=== PATIENT | female | born 1965 | race Caucasian/White ===

== ENCOUNTER 2017-03-06 02:57 | Emergency (ER) | payer OTHER ==
[~2017-03-06] VITALS: Ht 170.2 cm; Wt 82.4 kg
[2017-03-06 03:31] LABS: HEMATOCRIT 38.3 % (36.0-46.0); MCH 27.5 PG (29.0-34.0); MCHC 32.9 G/DL (30.0-36.0); MCV 83.6 FL (83-99); MEAN PLAT.VOLUME 9.4 uM^3 (9.5-12.4); PLATELET COUNT 361 K/uL (156-360); RBC DIS.WIDTH-CV 12.7 % (11.8-14.6); RBC DIS.WIDTH-SD 38.4 % (39-53); RED BLOOD COUNT 4.58 M/uL (3.80-5.20); WHITE BLOOD COUNT 13.9 K/uL (4.1-10.2)
[2017-03-06 03:42] LABS: CHLORIDE 103 mEq/L (99-109); POTASSIUM 4.4 mEq/L (3.7-5.4); SODIUM 136 mEq/L (136-147)
[2017-03-06 03:44] LABS: GLUCOSE 139 mg/dL (70-99)
[2017-03-06 03:45] LABS: ANION GAP 11 MEQ/L (2-14)
[2017-03-06 03:46] LABS: TOTAL BILIRUBIN 1.4 mg/dL (0.0-1.0)
[2017-03-06 03:48] LABS: ALKALINE PHOSPHATASE 91 IU/L (3-129)
[2017-03-06 03:49] LABS: UREA NITROGEN (BUN) 11 mg/dL (9-23)
[2017-03-06 03:57] LABS: QUANTITATIVE HCG < 4.0 MIU/ML
[2017-03-06 03:59] LABS: GFR ESTIMATE (CALCULATED) > 59 mL/min/
[2017-03-06 04:01] LABS: EOSINOPHIL (%) 0.4 % (0-5); EOSINOPHIL COUNT 0.1 K/uL (0-0.3); IMMATURE GRANULOCYTE (%) 0.6 % (0.0-0.7); IMMATURE GRANULOCYTE COUNT 0.1 K/uL; INSTRUMENT ABS NEUTROPHIL CT 11.3 K/uL; MONOCYTE (%) 8.8 % (3-12); MONOCYTE COUNT 1.2 K/uL (0-0.8); NEUTROPHIL (%) 82.4 % (45-76); NEUTROPHIL COUNT 11.3 K/uL (1.8-6.4)
[2017-03-06 04:12] LABS: LIPASE 12 U/L (1.0-51.0)
[2017-03-06 04:24] LABS: ADD MIUA? YES; BILIRUBIN NEGATIVE; BLOOD MODERATE; COLOR YELLOW ((YELLOW)); GLUCOSE (STRIP) NEGATIVE; KETONES 20; LEUKOCYTES SMALL; NITRITE NEGATIVE; PROTEIN (STRIP) NEGATIVE; SPECIFIC GRAVITY 1.012 (1.000-1.030); UROBILINOGEN 0.2 MG/DL (0.2-1.0)
[2017-03-06 04:27] LABS: BACTERIA RARE /HPF; EPITHELIAL CELLS RARE /HPF; MUCUS TRACE /LPF; RED BLOOD CELLS 0-5 /HPF (0-5); UCUL ADDED? NO
[2017-03-06] MEDS ORDERED: MACROBID100 MG PO (05:09)
[2017-03-06] MEDS ORDERED: PERCOCET 5/31 TABLET PO (05:09)
[2017-03-06 05:47] VITALS: BP 144/75
== END 2017-03-06 05:50 | disposition home or self-care (01) ==
LOC: EME 02:57
DX: R10.30 Lower abdominal pain, unspecified (principal); N83.8 Other noninflammatory disorders of ovary, fallopian tube and broad ligament; J90 Pleural effusion, not elsewhere classified; R18.8 Other ascites; N39.0 Urinary tract infection, site not specified; R06.00 Dyspnea, unspecified; K56.1 Intussusception; R00.0 Tachycardia, unspecified; R11.0 Nausea
CPT/HCPCS: 74177; 80053; 81003; 83605; 83690; 84702; 85025; 85027; 99281; 99285; J1885; J2270; J2405; J7030